=== PATIENT | male | born 1960 ===

== ENCOUNTER 2022-09-18 18:30 | Outpatient (CLI) | payer BC | END 2022-09-18 18:31 | disposition home or self-care (01) | LOC: SLEEPLAB 18:30 | PROVIDERS: ATTEND Internal Medicine | DX: G47.33 Obstructive sleep apnea (adult) (pediatric) (principal); R06.83 Snoring; G47.00 Insomnia, unspecified; R35.1 Nocturia | CPT/HCPCS: 95800 ==